=== PATIENT | female | born 1990 | race Caucasian/White ===

== ENCOUNTER 2017-01-13 12:22 | Emergency (ER) | payer BC, OTHER ==
[~2017-01-13] VITALS: Ht 170.2 cm; Wt 119.7 kg
--- NOTE | 2017-01-13 13:24 | ED EENT ---
History of Present Illness General Chief Complaint: Oral/Throat Problems Stated Complaint: THROAT PAIN/SWELLING/REDNESS Nursing Triage Note: PT C/O SORE THROAT, DIFFICULTY SWALLOWING AND FEVER SINCE SATURDAY. Source: patient Exam Limitations: no limitations History of Present Illness Time seen by provider: 13:24 Initial Comments 26 showed female patient presents to the emergency department with complaints of sore throat beginning Saturday. Reports increased pain with swallowing. Room mate was diagnosed with the mumps 2 weeks ago, but states roommate has been quarantined in her room for 2 weeks. Timing/Duration: gradual Location: throat Prearrival Treatment: over the counter meds (aspirin) Modifying Factors: Worse With Other (worse with swallowing) Allergies and Home Medications Allergies Coded Allergies: No Known Drug Allergies (Unverified , 01/13/17) Review of Systems Constitutional: chills, fever (onset today.), malaise Eyes: No Symptoms Reported Ears: No Symptoms Reported Nose: no symptoms reported Mouth: no symptoms reported Throat: see HPI, pain, swelling, denies neck stiffness, hoarse, denies aphonia , denies muffled, painful swallowing, denies difficulty with fluids Respiratory: no symptoms reported Cardiovascular: no symptoms reported Gastrointestinal: no symptoms reported Skin: no symptoms reported Neurological: No Symptoms Reported All Other Systems Reviewed Negative Unless Noted: Yes (Negative excepted noted.) Past Klknlho-Blveig-Ovdcgs Hx Patient Social History Alcohol Use: Rarely Uses Recreational Drug Use: No Smoking Status: Never a Smoker 2nd Hand Smoke Exposure: No Recent Foreign Travel: No Contact w/Someone Who Travel: No Recent Infectious Disease Expo: No Recent Hopitalizations: No Seasonal Allergies Seasonal Allergies: No Surgeries HX Surgeries: No Respiratory Hx Respiratory Disorders: No Cardiovascular Hx Cardiac Disorders: No Neurological Hx Neurological Disorders: No Reproductive System Hx Reproductive Disorders: No Genitourinary Hx Genitourinary Disorders: No Gastrointestinal Hx Gastrointestinal Disorders: No Musculoskeletal Hx Musculoskeletal Disorders: No Endocrine Hx Endocrine Disorders: No Cancer Hx Cancer: No Psychosocial Hx Psychiatric Problems: No Reviewed Nursing Assessment Reviewed/Agree w Nursing PMH: Yes Family Medical History Significant Family History: No Pertinent Family Hx Physical Exam Vital Signs Vital Sign - Last 12Hours 01/13/17 13:13 Temp 100.4 Pulse 90 Resp 16 B/P (MAP) 148/85 Pulse Ox 98 O2 Delivery Room Air General Appearance: WD/WN, no apparent distress Eyes: bilateral eye EOMI, bilateral eye PERRL, bilateral eye normal inspection Ears: bilateral ear TM normal, bilateral ear auricle normal, bilateral ear canal normal Nose: normal inspection Mouth/Throat: normal mouth inspection, No excessive drooling, tonsillar exudate , tonsillar swelling, No trismus, No uvula swelling, voice changes (hoarseness noted.), other (pharyngeal erythema noted. ) Neck: non-tender, full range of motion, supple, lymphadenopathy (R), lymphadenopathy (L) Cardiovascular: regular rate, rhythm, no murmur Respiratory: lungs clear, normal breath sounds, no respiratory distress Neurologic/Psychiatric: alert, normal mood/affect, oriented x 3 Skin: normal color, warm/dry Progress/Results/Core Measures Results/Orders Lab Results Laboratory Tests Test 01/13/17 13:06 Range/Units Group A Streptococcus Screen POSITIVE H NEGATIVE My Orders Orders - JOSEPHINE RICHARDSON Rapid Strep A Screen (01/13/17 13:08) Ibuprofen Tablet (Motrin Tablet) (01/13/17 13:28) Ceftriaxone Injection (Rocephin Injectio (01/13/17 13:30) Lidocaine 1% Injection (Xylocaine 1% Inj (01/13/17 13:30) Vital Signs/I&O Vital Sign - Last 12Hours 01/13/17 13:13 Temp 100.4 Pulse 90 Resp 16 B/P (MAP) 148/85 Pulse Ox 98 O2 Delivery Room Air Blood Pressure Mean: 106 Departure Communication Progress Notes Patient seen and evaluated. Laboratory findings discussed with patient. Plan for discharge to home. Impression Impression: Primary Impression: Streptococcal tonsillitis Disposition: HOME, SELF-CARE Condition: Improved Departure-Patient Inst. Decision time for Depature: 13:31 Referrals: NO,LOCAL PHYSICIAN (PCP/Family) Primary Care Physician Patient Instructions: Strep Throat (DC) Add. Discharge Instructions: All discharge instructions reviewed with patient and/or family. Voiced understanding. Medications as instructed. Tylenol extra strength [id number] as directed for pain. Ibuprofen 800 mg by mouth every 8 hours as needed for pain. Push fluids. Throat lozenges or sprays as needed for throat pain. Follow-up with your family practitioner of choice for recheck if no improvement in symptoms. Return to the emergency department for worsened pain, difficulty swallowing, difficulty breathing, fever, swelling, or any other concerns. Scripts Cefdinir (Cefdinir) 300 Mg Capsule 300 MG PO BID for 10 Days, #20 CAP 0 Refills Prov: JOSEPHINE RICHARDSON 01/13/17 Hydrocodone/Acetaminophen (Hydrocodon -Acetaminophen 5-325) 1 Each Tablet 1 EACH PO Q4H Y for PAIN, #14 TAB 0 Refills Prov: JOSEPHINE RICHARDSON 01/13/17 Work/School Note: Local Medical Staff Listing, Work Release Form Date Seen in the Emergency Department: Jan 13, 2017 Return to Work: Jan 15, 2017 Restrictions: Return-No Fever (24hrs) JOSEPHINE RICHARDSON Jan 13, 2017 13:24
[2017-01-13] MEDS ORDERED: IBUPROFEN 800 MG (MOTRIN) TAB PO STA (13:28)
[2017-01-13] MEDS ORDERED: cefTRIAXone 1 GM (ROCEPHIN) VIAL IM ONE (13:30)
[2017-01-13] MEDS ORDERED: LIDOCAINE 1% INJ 20 ML (XYLOCAINE) VIAL INJ ONE (13:30)
[2017-01-13] MEDS ORDERED: HYDR-3812 PO (13:38)
[2017-01-13] MEDS ORDERED: CEFD300C3 PO (13:38)
[2017-01-13] MEDS ORDERED: IOHEXOL 350 MG/ML 100 ML (OMNIPAQUE 350) VIAL IV ONE (13:45)
[2017-01-13] MEDS ORDERED: NS 100 ML (IVPB) BAG IV ONE (13:45)
[2017-01-13] MEDS ORDERED: CATHETER FLUSH 10 ML SYR IV PRN (13:45)
[2017-01-13 13:50] VITALS: BP 148/85
== END 2017-01-13 13:50 | disposition home or self-care (01) ==
LOC: ER 12:24
DX: J03.00 Acute streptococcal tonsillitis, unspecified (principal)
CPT/HCPCS: 87430; 96372; 99282